=== PATIENT | female | born 1940 | race Caucasian/White ===

== ENCOUNTER 2020-07-26 06:21 | Day surgery (SDC) | payer MEDICARE, OTHER ==
[2020-07-26] MEDS ORDERED: Sodium Chloride 0.9% 1,000 ML IV SCH (07:00)
[2020-07-26] MEDS ORDERED: fentaNYL 100 MCG/2 ML SDV ONE (07:09)
[2020-07-26] MEDS ORDERED: Propofol 200 MG/20 ML SDV ONE (07:09)
--- NOTE | 2020-07-26 10:47 | OR ---
DATE OF PROCEDURE: 07/26/2020 SURGEON: Magan Wyatt MD PROCEDURE: Colonoscopy. FINDINGS: 1. Mild inflammation at anastomosis (biopsied using cold biopsy forceps). 2. Endoscopic mucosal resection of polypoid sessile type lesion at 70 cm. COMPLICATIONS: None. MANAGER PROCUREMENT: None. ANESTHESIA: MAC. PREOPERATIVE DIAGNOSIS: History of colorectal cancer. POSTOPERATIVE DIAGNOSIS: History of colorectal cancer. PROCEDURE IN DETAIL: The patient was placed in left lateral decubitus position. Digital rectal exam was performed without abnormality. Scope was introduced and advanced atraumatically to the ileocecal valve. The scope was entered. At the previous location of the ileocecal valve, the anastomosis was noted. This was biopsied using cold biopsy forceps. This did have some mild inflammation, but there was no mass-type lesion. No bleeding. No significant abnormalities except for the aforementioned inflammation. Scope was brought back to approximately 7 cm. There was a sessile-type lesion concerning for a sessile polyp. This was identified and this was injected using submucosal injection with Courtney Ink. Dissection was then used to create more of a pseudopolyp. This was then transected using hot snare wire device. No abnormal bleeding was noted after removal. Scope was brought back to the remainder of the colon and inspected without abnormality. Greater than 8 minutes was spent removing the scope. The prep was acceptable, approximately 90% of the luminal surface could be seen. The patient tolerated the procedure well. No evidence of old or new blood. No masses. No colitis. No abnormalities on retroflexion. Magan Wyatt MD /[id number]
== END 2020-07-26 09:28 | disposition home or self-care (01) ==
LOC: JP.SDS 06:21
PROVIDERS: ATTEND Surgery
DX: Z12.11 Encounter for screening for malignant neoplasm of colon (principal); D12.6 Benign neoplasm of colon, unspecified; K63.89 Other specified diseases of intestine; I10 Essential (primary) hypertension; Z85.038 Personal history of other malignant neoplasm of large intestine; Z85.3 Personal history of malignant neoplasm of breast; Z88.8 Allergy status to other drugs, medicaments and biological substances
CPT/HCPCS: J2704; J3010; J7030

== ENCOUNTER 2021-02-11 02:16 | Emergency (ER) | payer MEDICARE, OTHER ==
[2021-02-11] MEDS ORDERED: Metoprolol Tartrate 50 MG Tab PO ONE (03:01)
--- NOTE | 2021-02-11 03:07 | EDM.PDOC ---
ED HPI GENERAL MEDICAL PROBLEM - General Chief Complaint: Cardiovascular Problem Stated Complaint: HIGH BLOOD PRESSURE Time Seen by Provider: 02/11/21 02:50 Source of Information: Reports: Patient, Family History Limitations: Reports: No Limitations - History of Present Illness INITIAL COMMENTS - FREE TEXT/NARRATIVE: 80-year-old female who woke up tonight to go to the bathroom, when she laid back down in bed she felt like her heart was beating harder than it usually does. She had no chest pain, no shortness of breath, no headache or dizziness. She thought she should check her blood pressure so using a wrist cuff she checked it 4 times and it ranged from 190 to 220 systolic. That made her more worried so she came in to be checked. On arrival her blood pressure is 220 systolic with a wrist cuff, however it is 197/91 with the arm cuff. She is asymptomatic. She has not checked her blood pressure for "probably a month". She is followed closely by oncology, has numerous labs and had a recent chest CT scan. Onset: Sudden (Symptoms started fairly suddenly after going to the bathroom tonight within the last hour) Associated Symptoms: Reports: No Other Symptoms - Related Data Allergies Allergy/AdvReac Type Severity Reaction Status Date / Time atenolol Allergy Hives Verified 02/11/21 02:29 rubus fruticosus Allergy Hives Uncoded 02/11/21 02:29 Home Meds: Home Meds Aspirin [Ecotrin] 325 mg PO DAILY PRN 09/10/13 [History] Calcium Carbonate/Vitamin D3 [[facility] Calcium + Vitamin D3 Sftgl] 1 each PO BID 09/10/13 [History] Lutein/Zeaxanthin [Lutein-Zeaxanthin 25-5 mg Sfgl] 1 each PO DAILY 09/10/13 [History] Magnesium Citrate 200 mg PO DAILY 09/10/13 [History] Multivitamin [Multi Vitamin Daily] 1 each PO DAILY 09/10/13 [History] Metoprolol Succinate 50 mg PO DAILY 07/22/20 [History] amLODIPine [Norvasc] 5 mg PO DAILY 07/22/20 [History] Cannabidiol (Cbd) Extract [Cannabis (Medical)] 15 mg PO DAILY PRN 07/26/20 [History] Cranberry 500 mg PO DAILY 07/26/20 [History] Past Medical History HEENT History: Reports: Cataract, Macular Degeneration Cardiovascular History: Reports: Heart Murmur, High Cholesterol, Hypertension Gastrointestinal History: Reports: None Genitourinary History: Reports: Renal Calculus [employer] History: Reports: Musculoskeletal History: Reports: Fracture, Osteoporosis Oncologic (Cancer) History: Reports: Breast, Colon, Other (See Below) Other Oncologic History: skin Dermatologic History: Reports: Other (See Below) Other Dermatologic History: 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 and arm - Infectious Disease History Infectious Disease History: Reports: Chicken Pox, Measles - Past Surgical History HEENT Surgical History: Reports: Cataract Surgery Cardiovascular Surgical History: Reports: None GI Surgical History: Reports: Appendectomy, Colonoscopy, Hernia, Inguinal, Other (See Below) Other GI Surgeries/Procedures: left hemicolectomy Female Surgical History: Reports: Breast Biopsy, Mastectomy Other Female Surgeries/Procedures: left mastectomy Musculoskeletal Surgical History: Reports: None Oncologic Surgical History: Reports: Biopsy of Breast, Lumpectomy Other Oncologic Surgeries/Procedures: Feb 10 left mastectomy, 2010 right lumpectomy Dermatological Surgical History: Reports: Skin Biopsy Social & Family History - Family History Family Medical History: No Pertinent Family History - Tobacco Use Tobacco Use Status *Q: Never Tobacco User - Caffeine Use Caffeine Use: Reports: Coffee - Recreational Drug Use Recreational Drug Use: No ED ROS GENERAL - Review of Systems Review Of Systems: See Below Constitutional: Denies: Fever, Chills HEENT: Reports: No Symptoms Respiratory: Denies: Shortness of Breath Cardiovascular: Reports: Palpitations. Denies: Chest Pain GI/Abdominal: Denies: Abdominal Pain, Nausea, Vomiting Skin: Reports: No Symptoms Neurological: Reports: No Symptoms Psychiatric: Reports: Anxiety ED EXAM, GENERAL - Physical Exam Exam: See Below Exam Limited By: No Limitations General Appearance: Alert, No Apparent Distress Eye Exam: Bilateral Eye: Normal Inspection Head: Atraumatic Neck: Normal Inspection. No: Lymphadenopathy (R), Lymphadenopathy (L) Respiratory/Chest: No Respiratory Distress, Lungs Clear Cardiovascular: Regular Rate, Rhythm, No Murmur GI/Abdominal: Soft, Non-Tender Extremities: Normal Inspection. No: Pedal Edema Neurological: Alert, Oriented, No Motor/Sensory Deficits Psychiatric: Anxious Skin Exam: Warm, Dry Course - Vital Signs Last Recorded V/S: Last Vital Signs Temp 97.8 F 02/11/21 02:33 Pulse 71 02/11/21 03:05 Resp 15 02/11/21 02:33 BP 197/73 H 02/11/21 03:05 Pulse Ox 98 02/11/21 02:33 - Orders/Labs/Meds Meds: Medications Discontinued Medications Generic Name Dose Route Start Last Admin Trade Name Javan PRN Reason Stop Dose Admin Metoprolol Tartrate 50 mg 02/11/21 03:01 02/11/21 03:05 Metoprolol Tartrate 50 Mg Tab PO 02/11/21 03:02 50 mg ONETIME ONE Administration - Re-Assessments/Exams Free Text/Narrative Re-Assessment/Exam: 02/11/21 03:05 Patient was given 50 mg of metoprolol and reassured. She should continue to take her blood pressure on a regular basis through the weekend, and recheck next week if not improving [place] planning to do in 1 week. She can return anytime if her blood pressure is persi stently elevated along with any chest pressure, pain, shortness of breath, headache or other concerns. Departure - Departure Time of Disposition: 03:17 Disposition: Home, Self-Care 01 Clinical Impression: Essential hypertension Instructions: Hypertension, Adult Referrals: PCP,None [Primary Care Provider] - Forms: ED Department Discharge Care Plan Goals: Try to rest tonight, and consider checking her blood pressure 1 or 2 times daily through the weekend. Recheck next week if your blood pressure is not normalizing as you may need a medication adjustment. Return to the emergency room if your blood pressure is persistently elevated and you develop symptoms such as chest pain, pressure, or headache. Sepsis Event Note (ED) - Evaluation Sepsis Screening Result: No Definite Risk - Focused Exam Vital Signs: Vital Signs Temp Pulse Pulse Resp BP BP BP 02/11/21 03:05 71 197/73 H 02/11/21 02:35 197/73 H 02/11/21 02:33 97.8 F 72 15 222/93 H Pulse Ox 02/11/21 03:05 02/11/21 02:35 02/11/21 02:33 98
== END 2021-02-11 03:18 | disposition home or self-care (01) ==
LOC: JP.ED 02:16
DX: I10 Essential (primary) hypertension (principal); E78.00 Pure hypercholesterolemia, unspecified; Z88.8 Allergy status to other drugs, medicaments and biological substances; Z91.018 Allergy to other foods; Z79.82 Long term (current) use of aspirin; Z79.899 Other long term (current) drug therapy
CPT/HCPCS: 99283; A9270

== ENCOUNTER 2021-07-26 17:33 | Emergency (ER) | payer MEDICARE, OTHER ==
[2021-07-26 18:51] LABS: TROPONIN I HIGH SENSITIVITY 34.3 pg/mL (<=60.3)
== END 2021-07-26 20:07 | disposition home or self-care (01) ==
LOC: JP.ED 17:33
DX: I10 Essential (primary) hypertension (principal); E78.00 Pure hypercholesterolemia, unspecified; Z79.82 Long term (current) use of aspirin; Z79.899 Other long term (current) drug therapy
CPT/HCPCS: 36415; 80048; 81001; 84484; 85025; 87086; 93005; 93010; 99282; 99283-25